=== PATIENT | male | born 1955 | race Caucasian/White ===

== ENCOUNTER 2022-04-08 09:11 | Outpatient (CLI) | payer OTHER, SELFPAY ==
[2022-04-08 16:30] LABS: Chloride* 105 mmol/L (96-114); Potassium* 4.5 mmol/L (3.6-5.1); Sodium* 140 mmol/L (135-149)
[2022-04-08 16:32] LABS: Cholesterol* 209 mg/dL (90-199)
[2022-04-08 16:33] LABS: Blood Urea Nitrogen* 26 mg/dL (7-30); Carbon Dioxide* 28 mmol/L (20-32); Estimated Glomerular Filt Rate 84 ml/min; Glucose* 106 mg/dL (60-115); Triglycerides* 191 mg/dL (40-149)
[2022-04-08 16:34] LABS: HDL Cholesterol* 33 mg/dL (>=40); LDL Cholesterol Calculated 138 mg/dL (<100)
[2022-04-08 17:05] LABS: PSA Screen* 0.98 ng/mL (0.10-4.00)
== END 2022-04-08 09:12 | disposition home or self-care (01) ==
LOC: NFLDREF 10:01
PROVIDERS: PCP Family Medicine; Visit Provider Family Medicine
DX: Z01.818 Encounter for other preprocedural examination (principal); Z12.5 Encounter for screening for malignant neoplasm of prostate; Z13.6 Encounter for screening for cardiovascular disorders
CPT/HCPCS: 80048; 80061; 84153

== ENCOUNTER 2022-04-08 10:12 | Day surgery (SDC) | payer OTHER, SELFPAY ==
[2022-04-08] MEDS: LACTATED RINGERS 1000 ML 1,000 ML 100 ML IV (10:30)
[2022-04-08 10:34] VITALS: BP 135/79; PULSE 54; RESP 16; TEMP 36.7; O2SAT 96
[2022-04-08 10:35] VITALS: BMI 42.7
[2022-04-08] MEDS: SODIUM CHLORIDE 0.9 % (FLUSH) 10 ML SYRINGE IVF (10:47)
[2022-04-08 13:02] VITALS: BP 123/82; PULSE 45; RESP 16; TEMP 36.3; O2SAT 98
--- NOTE | 2022-04-08 13:03 | P.PCN_ITS ---
Procedure Note Date Seen: 04/08/22 Will [facility] bill your pro fee for this procedure?: Yes Procedure Description: SURGEON: Hermila Mcpherson MD PREOPERATIVE DIAGNOSIS: Dermatochalasis, bilateral upper eyelids. POSTOPERATIVE DIAGNOSIS: Dermatochalasis, bilateral upper eyelids. NAME OF OPERATION: Bilateral upper eyelid blepharoplasty. ANESTHESIA: Local monitored anesthesia care. ESTIMATED BLOOD LOSS: Less than 2 cc. COMPLICATIONS: None. IMPLANTS: None. INDICATIONS: The patient is seen today for bilateral upper eyelid blepharoplasty. The patient complains of upper eyelids interfering with vision. I reviewed the visual ashley and facial photographs. Surgery was indicated for functional improvement of vision. The risks, benefits and alternatives were discussed pre-operatively. The risks included pain, infection, bleeding, poor cosmetic result, scarring, asymmetry, need for further treatment including surgery, inability to close lids, dry eyes, decreased vision, loss of vision and loss of eye. The benefits included improvement of symptoms. The alternative was observation and no surgery. All questions were answered to the patient's satisfaction, and the patient elected to proceed with the bilateral upper eyelid blepharoplasty. Informed consent was obtained. PROCEDURE: In a sitting position, the upper eyelid crease was marked with a marking pen, and the pinch technique was used to determine the amount of upper eyelid skin to be excised. A calipers was used to measure for symmetry and to confirm an appropriate amount of remaining skin. The patient was taken to the operating room. 4 cc of anesthetic was injected subcutaneously along the full extent of each upper eyelid. This anesthetic was made with 1:1 of 2% lidocaine with epinephrine and 0.5% bupivacaine. Both eyes were prepped and draped in the usual sterile ophthalmic fashion. The following was performed on both the right and left upper eyelid: A #15 blade was used to incise the skin. Bishops and Marlon scissors were used to excise the skin and orbicularis muscle. Handheld cautery was used to achieve hemostasis. The eyelids were examined for symmetry. The skin was closed with a running 6-0 nylon suture. Erythromycin ointment was applied to the wounds. The patient tolerated the procedure well. DISPOSITION: The patient was sent to the recovery room and discharged to home in stable condition. The patient was given my postoperative instructions handout. The patient was told to ice as directed. The patient will apply erythromycin ophthalmic ointment to the eyelids three times a day until the sutures are removed, then for another three days. The patient will follow up in one week for suture removal or sooner as needed. The patient was instructed to call me or go to the emergency department with any sudden change, including dramatic loss of vision, excessive bleeding, redness or discharge from the incisions, or severe pain in the eye. Surgeon: Hermila Mcpherson MD
--- NOTE | 2022-04-08 13:05 | W.ANESCHARGE ---
Anesthesia Charges Start Date/Time Anesthesia Start Date: 04/08/22 Anesthesia Start Time: 11:50 Stop Date/Time Anesthesia Stop Date: 04/08/22 Anesthesia Stop Time: 13:05 Summary Emergency: No
[2022-04-08 13:15] VITALS: BP 123/81; PULSE 45; RESP 16; O2SAT 97
[2022-04-08 13:30] VITALS: BP 142/85; PULSE 47; RESP 16; O2SAT 97
[2022-04-08 13:45] VITALS: BP 141/82; PULSE 48; RESP 16; O2SAT 97
== END 2022-04-08 13:56 | disposition home or self-care (01) ==
PROVIDERS: PCP Family Medicine; Visit Provider Ophthalmology
PROC: (CPT 15823; principal; 2022-04-08 11:00)
DX: H02.831 Dermatochalasis of right upper eyelid (principal); H02.834 Dermatochalasis of left upper eyelid; H53.8 Other visual disturbances
CPT/HCPCS: 15823; 00142; A9270; J2704; J7120

== ENCOUNTER 2022-09-16 15:04 | Observation (INO) | payer OTHER, SELFPAY ==
[2022-09-16] VITALS (49 sets, daily range): BP systolic 83–136; BP diastolic 60–84; PULSE 53–73; RESP 18–20; TEMP 35.8–36.7; O2SAT 81–100; BMI 40.2; BMI 42.3
--- NOTE | 2022-09-16 | CRLHL7_ITS ---
For Patients: As a result of the Century Cures Act, medical imaging exams and procedure reports are released immediately into your electronic medical record. You may view this report before your referring provider. If you have questions, please contact your health care provider. INDICATION: Fall, hit head. Loss of consciousness for 5 minutes.. TECHNIQUE: CT head without contrast. COMPARISON: None. FINDINGS: CSF spaces: Within normal limits for age. Brain parenchyma and extra-axial spaces: The bhagat-white differentiation is normal. No sign of mass, hemorrhage, or midline shift. No extra-axial fluid collection. Skull base and calvarium: The visualized paranasal sinuses and mastoid air cells demonstrate no acute or significant findings. The visualized orbits are grossly unremarkable. Subgaleal hematoma along the right frontal scalp. Subtle tubular density deep to the skull at this level likely a coursing vessel rather than hemorrhage. Very subtle hairline nondisplaced fracture of the right superior orbital rim (4/19) with small amount of hemorrhage/fluid is identified along the superior orbital margin. (7/; 5/61). IMPRESSION: No acute intracranial hemorrhage identified. Subtle nondisplaced fracture of the right superior orbital rim with small amount of hemorrhage/fluid along the superior orbital margin. Scalp hematoma along the right frontal bone. Consider further evaluation with CT facial bones as clinically indicated. Please note that all CT scans at this facility use dose modulation, iterative reconstruction, and/or weight-based dosing when appropriate to reduce radiation dose to as low as reasonably achievable. Dictated by Rachel Mayer MD @ 09/16/2022 3:33:12 PM (Electronically Signed)
--- NOTE | 2022-09-16 | CRLHL7_ITS ---
For Patients: As a result of the Century Cures Act, medical imaging exams and procedure reports are released immediately into your electronic medical record. You may view this report before your referring provider. If you have questions, please contact your health care provider. INDICATION: Trauma. TECHNIQUE: CT chest, abdomen and pelvis acquired without contrast. COMPARISON: None. FINDINGS: CHEST: Cardiovascular structures: Heart size is normal. main pulmonary artery is normal in caliber. Mild ectasia of the ascending aorta. Mediastinum and keith: No mass or adenopathy. Lungs and pleura: Lungs and pleural spaces are clear. No suspicious nodules, infiltrates, or effusions. Chest wall and axilla: No mass or adenopathy. Bones: No suspicious bone lesions. Unremarkable for age. ABDOMEN AND PELVIS: Liver: Unremarkable. Gallbladder and bile ducts: Unremarkable. Pancreas: Unremarkable. Spleen: Unremarkable. Adrenal glands: Unremarkable. Kidneys: Unremarkable. GI tract: Unremarkable. Vascular structures: Abdominal aorta is normal in caliber. Lymph nodes: Unremarkable. Miscellaneous: Unremarkable. No free air or significant free fluid. Pelvic Organs: Unremarkable. Bones: No suspicious bone lesions. Unremarkable for age. IMPRESSION: No intrathoracic of intra-abdominal traumatic injury identified. Please note that all CT scans at this facility use dose modulation, iterative reconstruction, and/or weight-based dosing when appropriate to reduce radiation dose to as low as reasonably achievable. Dictated by Rachel Mayer MD @ 09/16/2022 3:58:35 PM (Electronically Signed)
--- NOTE | 2022-09-16 | CRLHL7_ITS ---
For Patients: As a result of the Cures Act, medical imaging exams and procedure reports are released immediately into your electronic medical record. You may view this report before your referring provider. If you have questions, please contact your health care provider. INDICATION: Fall, hit head, loss of consciousness.. Neck pain. TECHNIQUE: CT cervical spine without contrast. COMPARISON: None. FINDINGS: Vertebrae: Alignment is normal. There are no fractures or suspicious bony lesions. Discs and facet joints: Disc spaces and facets are within normal limits. Extraspinal findings: Prevertebral soft tissues, visualized airway, and visualized lungs are unremarkable. IMPRESSION: Unremarkable cervical spine CT. Please note that all CT scans at this facility use dose modulation, iterative reconstruction, and/or weight-based dosing when appropriate to reduce radiation dose to as low as reasonably achievable. Dictated by Rachel Mayer MD @ 09/16/2022 3:37:45 PM (Electronically Signed)
--- NOTE | 2022-09-16 15:28 | ED_ITS ---
HPI - Head Injury General Chief complaint: Head Injury/Pain Stated complaint: Fall Time Seen by Provider: 09/16/22 15:09 History of Present Illness HPI Narrative: This 67-year-old male comes in by ambulance for evaluation after a fall that occurred just prior to arrival. He was up about fiber 6 ft off the ground putting oil in a Reg. He fell off hitting his head on asphalt. It is reported that he had loss of consciousness for about 5 minutes. A trauma team activation is initiated. The patient went immediately to CT imaging of his head. While being position for this imaging to occur I did press on his abdomen and chest and he became nauseated and had dry heaving. He did not complain of any pain but he certainly had a reaction when palpating his abdomen. CT imaging of chest abdomen and pelvis was then initiated. After these studies the patient came back to the room and I was able to do further exam. He is not showing any sign of injury to his extremities. He does have a hematoma with some bleeding on the right side of his forehead. He does not have any sign of injury to his extremities and does not complain of any tenderness when pressing on his chest wall or abdomen. He does complain of a headache. Related Data Home Medications Medication Instructions Recorded Confirmed meloxicam 15 mg tablet 15 mg PO QDAY 04/03/22 09/16/22 sertraline 100 mg tablet 100 mg PO QDAY 04/03/22 09/16/22 CPAP inhalation 04/06/22 Allergies Allergy/AdvReac Type Severity Reaction Status Date / Time No Known Drug Allergies Allergy Verified 04/06/22 08:29 Review of Systems Narrative: Constitutional: No fevers, no weight gain or loss. Eyes: No discharge. No vision changes. HENT: No congestion, no sore throat, no ear pain. Headache. Cardiovascular: No chest pain, no palpitations. Respiratory: No shortness of breath, no wheezes, no cough. Gastrointestinal: No abdominal pain, no diarrhea. He reports nausea and vomiting. Genitourinary: No dysuria, no hematuria. Musculoskeletal: Normal range of motion. Skin: No rashes, no pruritis. Neurological: No dizziness, weakness, sensory change, speech change. Endo/Heme/Allergies: No bruising or bleeding. No polydipsia. Pysch: no suicidality, no anxiety, no insomnia. All other systems reviewed and are negative. PFSH PFSH Medical History (Updated 09/16/22 @ 19:15 by Brad Bautista MD) Anxiety (02/22/07) [place] lung (02/22/07) Morbid obesity with body mass index of 40.0-49.9 Obstructive sleep apnea treated with continuous positive airway pressure (CPAP) Osteoarthritis of both wrists Seasonal allergic rhinitis (02/22/07) Vertigo Surgical History (Updated 04/06/22 @ 23:57 by Emory Masters MD) History of carpal tunnel surgery of left wrist History of cataract surgery History of colonoscopy History of detached retina repair History of third molar tooth extraction Family History (Updated 03/23/22 @ 13:50 by Carlos Madison) Brother FH: colonic polyps Throat cancer Uncle Colorectal cancer Mother Stroke Other High blood pressure Social History (Updated 04/06/22 @ 23:53 by Emory Masters MD) Narrative: 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 HEENT: Hematoma on the right forehead with overlying abrasion. No full- thickness injury of the skin in this area. Neck: Normal range of motion. Nontender. Supple. Heart: Regular. No murmurs. Normal rate. Intact distal pulses. Lungs: Clear to auscultation. No chest discomfort. No wheezes, rhonchi, or rales. Abdomen: Normal bowel sounds. Nontender. No rebound tenderness. Genitalia: Deferred. Back: No midline tenderness. Normal range of motion. Extremities: Normal range of motion. No injury. Skin: Intact. No rash. Warm. No erythema or pallor. Neurologic: No altered sensation. No weakness. Alert and oriented. Psychiatric: No suicidality. No anxiety or depression. No insomnia. Nursing notes and vitals signs are reviewed. Const: Vital Signs, click to edit/add: Vital Signs - 24 hr 09/16/22 15:24 09/16/22 15:34 09/16/22 15:35 Temperature 96.4 F L Pulse Rate 64 62 Pulse Rate [Pulse Oximeter] 56 L Respiratory Rate 20 Blood Pressure 112/67 Blood Pressure [Le ft Upper Arm] 110/71 Pulse Oximetry 98 100 99 Oxygen Delivery Me thod Room Air 09/16/22 15:42 09/16/22 15:45 09/16/22 15:52 Temperature Pulse Rate 55 L 56 L 60 Pulse Rate [Pulse Oximeter] Respiratory Rate Blood Pressure 101/62 109/60 Blood Pressure [Le ft Upper Arm] Pulse Oximetry 100 100 98 Oxygen Delivery Me thod 09/16/22 16:00 09/16/22 16:01 09/16/22 16:12 Temperature Pulse Rate 58 L 59 L 53 L Pulse Rate [Pulse Oximeter] Respiratory Rate Blood Pressure 105/65 103/65 Blood Pressure [Le ft Upper Arm] Pulse Oximetry 97 99 97 Oxygen Delivery Me thod 09/16/22 16:15 09/16/22 16:21 09/16/22 16:22 Temperature Pulse Rate 57 L 55 L 55 L Pulse Rate [Pulse Oximeter] Respiratory Rate Blood Pressure 105/66 Blood Pressure [Le ft Upper Arm] Pulse Oximetry 97 97 98 Oxygen Delivery Me thod 09/16/22 16:30 09/16/22 16:32 09/16/22 16:42 Temperature Pulse Rate 53 L 55 L 57 L Pulse Rate [Pulse Oximeter] Respiratory Rate Blood Pressure 107/68 104/74 Blood Pressure [Le ft Upper Arm] Pulse Oximetry 97 94 93 Oxygen Delivery Me thod 09/16/22 16:45 09/16/22 16:52 09/16/22 17:00 Temperature Pulse Rate 58 L 62 67 Pulse Rate [Pulse Oximeter] Respiratory Rate Blood Pressure 102/66 Blood Pressure [Le ft Upper Arm] Pulse Oximetry 94 92 93 Oxygen Delivery Me thod 09/16/22 17:02 09/16/22 17:12 09/16/22 17:27 Temperature 97.5 F L Pulse Rate 64 67 Pulse Rate [Pulse Oximeter] Respiratory Rate Blood Pressure 113/66 113/71 Blood Pressure [Le ft Upper Arm] Pulse Oximetry 96 88 Oxygen Delivery Me thod Course Vital Signs Vital signs: Initial Vital Signs Temperature 96.4 F L 09/16/22 15:24 Temperature Source Temporal Artery Scan 09/16/22 15:24 Pulse Rate 56 L 09/16/22 15:24 Respiratory Rate 20 09/16/22 15:24 Blood Pressure 110/71 09/16/22 15:24 Blood Pressure Mean 84 09/16/22 15:24 Blood Pressure Position Supine 09/16/22 15:24 Pulse Oximetry 98 09/16/22 15:24 Oxygen Delivery Method 09/16/22 15:24 Vital Signs Temperature 96.4 F L 09/16/22 15:24 Pulse Rate 56 L 09/16/22 15:24 Respiratory Rate 20 09/16/22 15:24 Blood Pressure 110/71 09/16/22 15:24 Pulse Oximetry 98 09/16/22 15:24 Oxygen Delivery Method 09/16/22 15:24 Temperature 97.5 F L 09/16/22 17:27 Pulse Rate 67 09/16/22 17:12 Respiratory Rate 20 09/16/22 15:24 Blood Pressure 113/71 09/16/22 17:12 Pulse Oximetry 88 09/16/22 17:12 Oxygen Delivery Method 09/16/22 15:24 MDM - Head Injury MDM Narrative Medical decision making narrative: Primary Survey: Vital Signs are within normal limits. Airway: Open. Breathing: Easy. Circulation: no obvious bleeding; normal capillary refill. Disability: GCS is 15. Normal pupillary response and motor movements. Secondary Survey: Head: Hematoma on the right forehead with overlying abrasion. Neck: No midline tenderness. ROM intact. Chest: Non tender. No external signs of trauma. Abdomen: Non tender. No rebound tenderness. Normal bowel sounds. Pelvis/Genitals: No tenderness to A/P and lateral stress. Extremities: Atraumatic. Back: No midline tenderness. No sign of injury. Primary and Secondary surveys are completed. The patient's GCS is 15. CT imaging of the head returns with evidence of a fracture in the superior orbital rim on the right side. There is no involvement of the sinuses. He does not have any entrapment of his eye musculature. There is no sign of intracranial bleeding. Additionally CT scan of the C-spine, chest, abdomen, and pelvis are unremarkable. The patient received 0.5 mg of Dilaudid and a couple doses of Zofran 4 mg. His main complaint was nausea. He also received a single dose of Ativan 0.5 mg. This brought relief to his symptoms sufficiently. X-ray imaging of his left hand does show evidence of a minimally displaced fracture of the distal 5th metatarsal. I did place this area in a ulnar gutter splint. I spoke with the 3 physicians regarding this patient's injuries. I did contact Dr. Pope, surgeon on-call who recommended that I consult a specialist including and neurosurgeon. At that point her understanding was that this was an open fracture. This injury really is not an open fracture but nevertheless I did speak with Dr. Palumbo at [facility] who stated that he could be observed here and that triggers of worsening condition such as open fracture, frontal sinus involvement, or eye musculature entrapment are not being seen. The patient is okay to go home when he is able to do so. I did speak with Dr. Landa, hospitalist on-call, who agrees to his admission here. Lab Data Labs: Lab Results 09/16/22 09/16/22 09/16/22 Range/Units 15:39 15:39 15:39 WBC 6.89 (4.50-11.00) K/uL RBC 4.35 (4.30-5.90) m/uL Hgb 13.4 L (13.5-17.5) gm/dL Hct 38.6 (37.0-53.0) % MCV 89 (80-100) fL MCH 31 (26-34) pg MCHC 35 (32-36) gm/dL RDW Coeff of Enrique 12.6 (11.5-15.5) % Plt Count 164 (140-440) K/uL Neut % (Auto) 69.2 (42.0-72.0) % Lymph % (Auto) 21.0 (20-44) % [place] % (Auto) 7.5 (0.0-11.0) % Eos % (Auto) 1.6 (0.0-7.0) % Baso % (Auto) 0.4 (0.0-3.0) % Neut # (Auto) 4.76 (1.7-7.0) K/uL Lymph # (Auto) 1.45 (0.90-2.90) K/uL [place] # (Auto) 0.50 (0.00-0.90) K/UL Eos # (Auto) 0.11 (0.00-0.50) K/uL Baso # (Auto) 0.03 (0.00-0.30) K/uL INR 1.00 (0.91-1.10) Sodium 138 (135-149) mmol/L Potassium 3.6 (3.6-5.1) mmol/L Chloride 108 (96-114) mmol/L Carbon Dioxide 23 (20-32) mmol/L BUN 19 (7-30) mg/dL Creatinine 0.9 (0.5-1.5) mg/dL Estimated Creat Clear 76.04 Estimated GFR 95 ml/min Glucose 176 H (60-115) mg/dL Calcium 8.9 (8.4-10.6) mg/dL Total Bilirubin 0.6 (0.1-1.5) mg/dL Direct Bilirubin 0.2 (0.0-0.5) mg/dL AST 29 (12-35) U/L ALT 25 (4-50) U/L Alkaline Phosphatase 52 (40-150) U/L Total Protein 6.7 (6.0-8.3) g/dL Albumin 3.9 (3.3-5.0) g/dL SARS-CoV-2 (PCR) (Negative) 09/16/22 09/16/22 Range/Units 15:39 16:21 WBC (4.50-11.00) K/uL RBC (4.30-5.90) m/uL Hgb (13.5-17.5) gm/dL Hct (37.0-53.0) % MCV (80-100) fL MCH (26-34) pg MCHC (32-36) gm/dL RDW Coeff of Enrique (11.5-15.5) % Plt Count (140-440) K/uL Neut % (Auto) (42.0-72.0) % Lymph % (Auto) (20-44) % [place] % (Auto) (0.0-11.0) % Eos % (Auto) (0.0-7.0) % Baso % (Auto) (0.0-3.0) % Neut # (Auto) (1.7-7.0) K/uL Lymph # (Auto) (0.90-2.90) K/uL [place] # (Auto) (0.00-0.90) K/UL Eos # (Auto) (0.00-0.50) K/uL Baso # (Auto) (0.00-0.30) K/uL INR (0.91-1.10) Sodium (135-149) mmol/L Potassium (3.6-5.1) mmol/L Chloride (96-114) mmol/L Carbon Dioxide (20-32) mmol/L BUN (7-30) mg/dL Creatinine (0.5-1.5) mg/dL Estimated Creat Clear Estimated GFR ml/min Glucose (60-115) mg/dL Calcium (8.4-10.6) mg/dL Total Bilirubin Cancelled (0.1-1.5) mg/dL Direct Bilirubin Cancelled (0.0-0.5) mg/dL AST Cancelled (12-35) U/L ALT Cancelled (4-50) U/L Alkaline Phosphatase Cancelled (40-150) U/L Total Protein Cancelled (6.0-8.3) g/dL Albumin Cancelled (3.3-5.0) g/dL SARS-CoV-2 (PCR) Negative SARS-CoV-2 (Negative) Imaging Data CT scan - head: Radiologist's impression: No acute intracranial hemorrhage identified. Subtle nondisplaced fracture of the right superior orbital rim with small amount of hemorrhage/fluid along the superior orbital margin. Scalp hematoma along the right frontal bone. Consider further evaluation with CT facial bones as clinically indicated. CT Cervical Spine: Radiologist's impression: Unremarkable cervical spine CT. CT Chest/Ab/Pelvis: Attestation: I have reviewed the pertinent imaging results. Radiologist's impression: No intrathoracic of intra-abdominal traumatic injury identified. XR L Hand: Radiologist's impression: Bones: There is a fracture at the neck of the 5th metacarpal without significant distraction or displacement. Joint spaces: No dislocation. Advanced osteoarthritis at the 1st carpometacarpal joint with joint space narrowing and marginal osteophytes. Soft tissues: Mild soft tissue swelling. Intravenous line at the dorsal aspect of the hand. Critical Care Time Critical Care Time Critical Care Time: Yes Attestation: The patient required my highest level preparedness to intervene emergently and I personally spent this critical care time directly and personally managing the patient. This critical care time included: Obtaining a history; Examining the patient; Pulse oximetry; Ordering and reviewing of studies; Arranging urgent treatment with development of a management plan; Evaluation of patients response to treatment; Frequent reassessment discussions with other providers. This critical care time was performed to assess and manage the high probability of imminent life-threatening deterioration that could result in multiorgan failure. It was exclusive of separate billable procedures and treating other patients and teaching time. Total Critical Care Time in Minutes: 30 Discharge Plan Discharge Clinical Impression: Concussion, Skull fracture, Fracture of hand Patient Disposition: Admitted As Inpatient Condition: Unchanged Prescriptions: No Action sertraline 100 mg tablet 100 mg PO QDAY Label Comments: TAKE 1 TABLET BY MOUTH ONCE DAILY. meloxicam 15 mg tablet 15 mg PO QDAY Label Comments: TAKE 1 TABLET BY MOUTH ONCE DAILY. CPAP inhalation Follow Up/Referrals: Emory Masters MD [Primary Care Provider] -
[2022-09-16] MEDS: HYDROmorphone 0.5 mg/0.5 ml inj IVP (15:48)
--- NOTE | 2022-09-16 15:50 | CRLHL7_ITS ---
For Patients: As a result of the Cures Act, medical imaging exams and procedure reports are released immediately into your electronic medical record. You may view this report before your referring provider. If you have questions, please contact your health care provider. Indication: Injury Technique: Three views Comparison: None Findings: Bones: There is a fracture at the neck of the 5th metacarpal without significant distraction or displacement. Joint spaces: No dislocation. Advanced osteoarthritis at the 1st carpometacarpal joint with joint space narrowing and marginal osteophytes. Soft tissues: Mild soft tissue swelling. Intravenous line at the dorsal aspect of the hand. Dictated by River Sawant MD @ 09/16/2022 4:48:05 PM (Electronically Signed)
[2022-09-16 15:58] LABS: Basophils Absolute Auto 0.03 K/uL (0.00-0.30); Basophils Percent Auto 0.4 % (0.0-3.0); Eosinophils Absolute Auto 0.11 K/uL (0.00-0.50); Eosinophils Percent Auto 1.6 % (0.0-7.0); Hematocrit 38.6 % (37.0-53.0); Hemoglobin* 13.4 gm/dL (13.5-17.5); Immature Granulocytes Abs Auto 0.02 K/uL (0.00-0.30); Immature Granulocytes Pct Auto 0.3 %; Lymphocytes Absolute Auto 1.45 K/uL (0.90-2.90); Mean Corpuscular HGB Conc 35 gm/dL (32-36); Mean Corpuscular Hemoglobin 31 pg (26-34); Mean Corpuscular Volume 89 fL (80-100); Monocytes Percent Auto 7.5 % (0.0-11.0); Neutrophils Absolute Auto 4.76 K/uL (1.7-7.0); Neutrophils Percent Auto 69.2 % (42.0-72.0); Platelet Count* 164 K/uL (140-440); RDW Coefficient of Variation % 12.6 % (11.5-15.5); Red Blood Count 4.35 m/uL (4.30-5.90); White Blood Count* 6.89 K/uL (4.50-11.00)
[2022-09-16 16:05] LABS: Slide Review Reflex No
[2022-09-16 16:06] LABS: Albumin* 3.9 g/dL (3.3-5.0); Chloride* 108 mmol/L (96-114); Sodium* 138 mmol/L (135-149)
[2022-09-16 16:07] LABS: Potassium* 3.6 mmol/L (3.6-5.1)
[2022-09-16 16:09] LABS: Alkaline Phosphatase* 52 U/L (40-150); Aspartate Amino Transferase* 29 U/L (12-35); Bilirubin Direct* 0.2 mg/dL (0.0-0.5); Bilirubin Total* 0.6 mg/dL (0.1-1.5); Blood Urea Nitrogen* 19 mg/dL (7-30); Carbon Dioxide* 23 mmol/L (20-32); Creatinine* 0.9 mg/dL (0.5-1.5); Est. Creatinine Clearance* 76.04; Estimated Glomerular Filt Rate 95 ml/min; Total Protein* 6.7 g/dL (6.0-8.3)
[2022-09-16 16:10] LABS: Alanine Aminotransferase* 25 U/L (4-50); Calcium* 8.9 mg/dL (8.4-10.6); Glucose* 176 mg/dL (60-115)
[2022-09-16 16:27] LABS: Prothrombin Time 13.8 Seconds
[2022-09-16] MEDS: ONDANSETRON 2 MG/ML inj 4 MG IVP (16:59)
[2022-09-16] MEDS: 0.9 % SODIUM CHLORIDE 500 ML 500 ML IV (17:20)
[2022-09-16] MEDS: LORazepam 2 MG/ML inj 0.5 MG IV (18:20)
[2022-09-16 18:43] LABS: SARS PCR* Negative SARS-CoV-2 (Negative)
[2022-09-16 21:28] LABS: Hemoglobin A1C* 5.73 % (0-5.6)
--- NOTE | 2022-09-16 21:30 | PM.IMHP1 ---
Hospitalist- H&P: HPI History of Present Illness Time Seen by Provider: 20:45 Date Seen: 09/16/22 Chief complaint: Fall Narrative: Nicholas Palacios is a 67 year old male who was in his usual state of health when he fell off a semi trailer and hit his head on concrete with 5 minutes loss of consciousness. He is not on blood thinner. 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 His son did not see the fall but noticed that keep was not up on the trailer anymore, came around the corner to find Nicholas on the ground on his side unconscious. He was throwing up white frothy emesis. Nicholas was unconscious for about 5 minutes total. Nicholas does not remember falling. He had vertigo 1 year ago and fell off a ladder at that time, but has not had any of those symptoms since. He has not had any cardiac symptoms or dizziness lately. Since hitting his head this evening, he feels vertiginous whenever he moves his head or body. He has had occasional emesis which coincides with movement. He does have some right chest wall pain from the fall. Also of note is that he slipped on the ice earlier today and bumped his right elbow on the ground. He did not hit his head and had no loss of consciousness at that time. Dr. Lopez spoke with Dr. Smith from neuro surgery who thought this patient could go home or be admitted for observation and did not need any further imaging unless something were to change. Review of Systems Status of ROS: Reports: 10 or more systems reviewed and unremarkable except as noted in History and below [facility] Medical History (Updated 09/16/22 @ 21:43 by Narda Landa MD) Anxiety (02/22/07) [place] lung (02/22/07) Morbid obesity with body mass index of 40.0-49.9 Obstructive sleep apnea treated with continuous positive airway pressure (CPAP) Osteoarthritis of both wrists Seasonal allergic rhinitis (02/22/07) Vertigo Surgical History History of carpal tunnel surgery of left wrist History of cataract surgery History of colonoscopy History of detached retina repair History of third molar tooth extraction Family History Brother FH: colonic polyps Throat cancer Uncle Colorectal cancer Mother Stroke Other High blood pressure Social History (Updated 09/16/22 @ 21:36 by Narda Landa MD) Narrative: 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, 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, Consumes alcohol occasionally, 4 per month Does not use illicit drugs Non-smoker FULL CODE Highest level of school completed/degree received: Associate degree: occupational, technical, vocational program Smoking Status: Never smoker How often do you have a drink containing alcohol: never AUDIT-C Alcohol total score: 0 Non-prescribed substance use: denies use Caffeine: Yes Little interest or pleasure in doing things: not at all Feeling down, depressed, or hopeless: not at all service: No Meds Home Medications and Allergies Home Medications Medication Instructions Recorded Confirmed Type meloxicam 15 mg tablet 15 mg PO QDAY 04/03/22 09/16/22 History sertraline 100 mg tablet 100 mg PO QDAY 04/03/22 09/16/22 History CPAP inhalation 04/06/22 History Allergies Allergy/AdvReac Type Severity Reaction Status Date / Time No Known Drug Allergies Allergy Verified 04/06/22 08:29 Exam Narrative: Exam Narrative: General: Vertiginous especially with movement. Emesis with movement. Awake alert oriented x3. Speech is normal. Joking. HEENT: Right forehead abrasions noted, hemostatic. Right eyelid edema and hematoma, extraocular eye movements intact. Both horizontal and vertical nystagmus are present. Left pupil is round and intact, responsive to light and accommodation. Right pupil is chronically fixed and 3 mm diameter. Oropharynx clear. Mucous membranes are moist. No cervical lymphadenopathy, thyromegaly or carotid bruits. No JVD. Cardiovascular: Regular rate and rhythm. No murmurs, gallops, or rubs. Chest: No increased work of breathing. Clear to auscultation bilaterally. No crackles or wheezes. Bruises over the chest wall. Abdomen: Bowel sounds present. Soft, nondistended, nontender. No hepatosplenomegaly or masses. Extremities: Left forearm and hand are in a gutter splint with Shahab wraps. Small dime-sized abrasion on his right knee. No edema, no cyanosis or clubbing. Skin: As above. No jaundice, no pallor. Neuro: There are no focal deficits. Cranial nerves 2-12 are intact. He has hearing aids in and his hearing is intact. Extraocular movements are full. Horizontal and vertical nystagmus are present. No facial asymmetry other than soft tissue injury around the right forehead and right eyelids. Tongue is midline. Peripheral vision and vision are grossly intact. Strength is 5/5 in all 4 extremities. Light touch sensation is intact in face body and extremities. Const: Vital Signs, click to edit/add: Vital Signs - 24 hr 09/16/22 15:24 09/16/22 15:34 09/16/22 15:35 Temperature 96.4 F L Pulse Rate 64 62 Pulse Rate [Pulse Oximeter] 56 L Respiratory Rate 20 Blood Pressure 112/67 Blood Pressure [Le ft Arm] Blood Pressure [Le ft Upper Arm] 110/71 Pulse Oximetry 98 100 99 Oxygen Delivery Me thod Room Air Oxygen Flow Rate 09/16/22 15:42 09/16/22 15:45 09/16/22 15:52 Temperature Pulse Rate 55 L 56 L 60 Pulse Rate [Pulse Oximeter] Respiratory Rate Blood Pressure 101/62 109/60 Blood Pressure [Le ft Arm] Blood Pressure [Le ft Upper Arm] Pulse Oximetry 100 100 98 Oxygen Delivery Me thod Oxygen Flow Rate 09/16/22 16:00 09/16/22 16:01 09/16/22 16:12 Temperature Pulse Rate 58 L 59 L 53 L Pulse Rate [Pulse Oximeter] Respiratory Rate Blood Pressure 105/65 103/65 Blood Pressure [Le ft Arm] Blood Pressure [Le ft Upper Arm] Pulse Oximetry 97 99 97 Oxygen Delivery Me thod Oxygen Flow Rate 09/16/22 16:15 09/16/22 16:21 09/16/22 16:22 Temperature Pulse Rate 57 L 55 L 55 L Pulse Rate [Pulse Oximeter] Respiratory Rate Blood Pressure 105/66 Blood Pressure [Le ft Arm] Blood Pressure [Le ft Upper Arm] Pulse Oximetry 97 97 98 Oxygen Delivery Me thod Oxygen Flow Rate 09/16/22 16:30 09/16/22 16:32 09/16/22 16:42 Temperature Pulse Rate 53 L 55 L 57 L Pulse Rate [Pulse Oximeter] Respiratory Rate Blood Pressure 107/68 104/74 Blood Pressure [Le ft Arm] Blood Pressure [Le ft Upper Arm] Pulse Oximetry 97 94 93 Oxygen Delivery Me thod Oxygen Flow Rate 09/16/22 16:45 09/16/22 16:52 09/16/22 17:00 Temperature Pulse Rate 58 L 62 67 Pulse Rate [Pulse Oximeter] Respiratory Rate Blood Pressure 102/66 Blood Pressure [Le ft Arm] Blood Pressure [Le ft Upper Arm] Pulse Oximetry 94 92 93 Oxygen Delivery Me thod Oxygen Flow Rate 09/16/22 17:02 09/16/22 17:12 09/16/22 17:27 Temperature 97.5 F L Pulse Rate 64 67 Pulse Rate [Pulse Oximeter] Respiratory Rate Blood Pressure 113/66 113/71 Blood Pressure [Le ft Arm] Blood Pressure [Le ft Upper Arm] Pulse Oximetry 96 88 Oxygen Delivery Me thod Oxygen Flow Rate 09/16/22 17:38 09/16/22 17:13 09/16/22 17:15 Temperature Pulse Rate 64 67 Pulse Rate [Pulse Oximeter] Respiratory Rate Blood Pressure Blood Pressure [Le ft Arm] Blood Pressure [Le ft Upper Arm] Pulse Oximetry 95 95 92 Oxygen Delivery Me thod Nasal Cannula Oxygen Flow Rate 2 09/16/22 17:21 09/16/22 17:30 09/16/22 17:32 Temperature Pulse Rate 68 64 60 Pulse Rate [Pulse Oximeter] Respiratory Rate Blood Pressure 120/70 120/75 Blood Pressure [Le ft Arm] Blood Pressure [Le ft Upper Arm] Pulse Oximetry 81 L 94 97 Oxygen Delivery Me thod Oxygen Flow Rate 09/16/22 17:42 09/16/22 17:44 09/16/22 17:45 Temperature Pulse Rate 54 L 59 L 58 L Pulse Rate [Pulse Oximeter] Respiratory Rate Blood Pressure 83/65 L 109/62 Blood Pressure [Le ft Arm] Blood Pressure [Le ft Upper Arm] Pulse Oximetry 99 98 99 Oxygen Delivery Me thod Oxygen Flow Rate 09/16/22 17:51 09/16/22 18:00 09/16/22 18:01 Temperature Pulse Rate 59 L 58 L 61 Pulse Rate [Pulse Oximeter] Respiratory Rate Blood Pressure 107/63 115/75 Blood Pressure [Le ft Arm] Blood Pressure [Le ft Upper Arm] Pulse Oximetry 98 98 98 Oxygen Delivery Me thod Oxygen Flow Rate 09/16/22 18:12 09/16/22 18:15 09/16/22 18:21 Temperature Pulse Rate 62 66 69 Pulse Rate [Pulse Oximeter] Respiratory Rate Blood Pressure 117/71 118/71 Blood Pressure [Le ft Arm] Blood Pressure [Le ft Upper Arm] Pulse Oximetry 95 94 95 Oxygen Delivery Me thod Oxygen Flow Rate 09/16/22 18:30 09/16/22 18:31 09/16/22 18:41 Temperature Pulse Rate 72 72 73 Pulse Rate [Pulse Oximeter] Respiratory Rate Blood Pressure 117/71 120/75 Blood Pressure [Le ft Arm] Blood Pressure [Le ft Upper Arm] Pulse Oximetry 96 96 93 Oxygen Delivery Me thod Oxygen Flow Rate 09/16/22 18:45 09/16/22 18:51 09/16/22 19:00 Temperature Pulse Rate 71 69 71 Pulse Rate [Pulse Oximeter] Respiratory Rate Blood Pressure 121/74 Blood Pressure [Le ft Arm] Blood Pressure [Le ft Upper Arm] Pulse Oximetry 94 93 94 Oxygen Delivery Me thod Oxygen Flow Rate 09/16/22 19:01 09/16/22 19:14 09/16/22 19:15 Temperature Pulse Rate 71 68 66 Pulse Rate [Pulse Oximeter] Respiratory Rate Blood Pressure 120/78 130/84 Blood Pressure [Le ft Arm] Blood Pressure [Le ft Upper Arm] Pulse Oximetry 92 95 97 Oxygen Delivery Me thod Oxygen Flow Rate 09/16/22 20:12 Temperature 98 F Pulse Rate Pulse Rate [Pulse Oximeter] 72 Respiratory Rate 18 Blood Pressure Blood Pressure [Le ft Arm] 136/78 Blood Pressure [Le ft Upper Arm] Pulse Oximetry 97 Oxygen Delivery Me thod Nasal Cannula Oxygen Flow Rate 2 Hospitalist - H&P: Result Labs Labs: Short CBC 09/16/22 Range/Units 15:39 WBC 6.89 (4.50-11.00) K/uL Hgb 13.4 L (13.5-17.5) gm/dL Hct 38.6 (37.0-53.0) % Plt Count 164 (140-440) K/uL BMP 09/16/22 15:39 Sodium 138 Potassium 3.6 Chloride 108 Carbon Dioxide 23 BUN 19 Creatinine 0.9 Glucose 176 H Calcium 8.9 Liver Function 09/16/22 09/16/22 Range/Units 15:39 15:39 Total Bilirubin 0.6 Cancelled (0.1-1.5) mg/dL Direct Bilirubin 0.2 Cancelled (0.0-0.5) mg/dL AST 29 Cancelled (12-35) U/L ALT 25 Cancelled (4-50) U/L Alkaline Phosphatase 52 Cancelled (40-150) U/L Albumin 3.9 Cancelled (3.3-5.0) g/dL 09/16/2022 3:34 p.m. EKG: Normal sinus rhythm. 62 beats per minute. Nonspecific ST abnormality. Ordering Physician: Brad Bautista M.D. Date of Service: 09/16/22 Procedure(s): CT cervical spine wo con Accession Number(s): [id number] cc: Brad Bautista M.D.; Emory Masters M.D.~ For Patients: As a result of the Cures Act, medical imaging exams and procedure reports are released immediately into your electronic medical record. You may view this report before your referring provider. If you have questions, please contact your health care provider. INDICATION: Fall, hit head, loss of consciousness.. Neck pain. TECHNIQUE: CT cervical spine without contrast. COMPARISON: None. FINDINGS: Vertebrae: Alignment is normal. There are no fractures or suspicious bony lesions. Discs and facet joints: Disc spaces and facets are within normal limits. Extraspinal findings: Prevertebral soft tissues, visualized airway, and visualized lungs are unremarkable. IMPRESSION: Unremarkable cervical spine CT. Please note that all CT scans at this facility use dose modulation, iterative reconstruction, and/or weight-based dosing when appropriate to reduce radiation dose to as low as reasonably achievable. Dictated by Rachel Mayer MD @ 09/16/2022 3:37:45 PM (Electronically Signed) Ordering Physician: Brad Bautista M.D. Date of Service: 09/16/22 Procedure(s): CT chest abdomen pelv wo con Accession Number(s): [id number] cc: Brad Bautista M.D.; Emory Masters M.D.~ For Patients: As a result of the Cures Act, medical imaging exams and procedure reports are released immediately into your electronic medical record. You may view this report before your referring provider. If you have questions, please contact your health care provider. INDICATION: Trauma. TECHNIQUE: CT chest, abdomen and pelvis acquired without contrast. COMPARISON: None. FINDINGS: CHEST: Cardiovascular structures: Heart size is normal. main pulmonary artery is normal in caliber. Mild ectasia of the ascending aorta. Mediastinum and keith: No mass or adenopathy. Lungs and pleura: Lungs and pleural spaces are clear. No suspicious nodules, infiltrates, or effusions. Chest wall and axilla: No mass or adenopathy. Bones: No suspicious bone lesions. Unremarkable for age. ABDOMEN AND PELVIS: Liver: Unremarkable. Gallbladder and bile ducts: Unremarkable. Pancreas: Unremarkable. Spleen: Unremarkable. Adrenal glands: Unremarkable. Kidneys: Unremarkable. GI tract: Unremarkable. Vascular structures: Abdominal aorta is normal in caliber. Lymph nodes: Unremarkable. Miscellaneous: Unremarkable. No free air or significant free fluid. Pelvic Organs: Unremarkable. Bones: No suspicious bone lesions. Unremarkable for age. IMPRESSION: No intrathoracic of intra-abdominal traumatic injury identified. Please note that all CT scans at this facility use dose modulation, iterative reconstruction, and/or weight-based dosing when appropriate to reduce radiation dose to as low as reasonably achievable. Dictated by Rachel Mayer MD @ 09/16/2022 3:58:35 PM (Electronically Signed) Ordering Physician: Brad Bautista M.D. Date of Service: 09/16/22 Procedure(s): CT head/brain wo con Accession Number(s): [id number] cc: Brad Bautista M.D.; Emory Masters M.D.~ For Patients: As a result of the Cures Act, medical imaging exams and procedure reports are released immediately into your electronic medical record. You may view this report before your referring provider. If you have questions, please contact your health care provider. INDICATION: Fall, hit head. Loss of consciousness for 5 minutes.. TECHNIQUE: CT head without contrast. COMPARISON: None. FINDINGS: CSF spaces: Within normal limits for age. Brain parenchyma and extra-axial spaces: The bhagat-white differentiation is normal. No sign of mass, hemorrhage, or midline shift. No extra-axial fluid collection. Skull base and calvarium: The visualized paranasal sinuses and mastoid air cells demonstrate no acute or significant findings. The visualized orbits are grossly unremarkable. Subgaleal hematoma along the right frontal scalp. Subtle tubular density deep to the skull at this level likely a coursing vessel rather than hemorrhage. Very subtle hairline nondisplaced fracture of the right superior orbital rim (4/19) with small amount of hemorrhage/fluid is identified along the superior orbital margin. (03/16; 561). IMPRESSION: No acute intracranial hemorrhage identified. Subtle nondisplaced fracture of the right superior orbital rim with small amount of hemorrhage/fluid along the superior orbital margin. Scalp hematoma along the right frontal bone. Consider further evaluation with CT facial bones as clinically indicated. Please note that all CT scans at this facility use dose modulation, iterative reconstruction, and/or weight-based dosing when appropriate to reduce radiation dose to as low as reasonably achievable. Dictated by Rachel Mayer MD @ 09/16/2022 3:33:12 PM (Electronically Signed) Ordering Physician: Brad Bautista M.D. Date of Service: 09/16/22 Procedure(s): XR hand LT min 3V Accession Number(s): [id number] cc: Brad Bautista M.D.; Emory Masters M.D.~ For Patients: As a result of the Cures Act, medical imaging exams and procedure reports are released immediately into your electronic medical record. You may view this report before your referring provider. If you have questions, please contact your health care provider. Indication: Injury Technique: Three views Comparison: None Findings: Bones: There is a fracture at the neck of the 5th metacarpal without significant distraction or displacement. Joint spaces: No dislocation. Advanced osteoarthritis at the 1st carpometacarpal joint with joint space narrowing and marginal osteophytes. Soft tissues: Mild soft tissue swelling. Intravenous line at the dorsal aspect of the hand. Dictated by River Sawant MD @ 09/16/2022 4:48:05 PM (Electronically Signed) Assessment and Plan Assessment and plan (1) Concussion: Status: Acute (2) Skull fracture: Status: Acute (3) Fracture of hand: Problem comment: Left 5th metacarpal Status: Acute (4) Obstructive sleep apnea treated with continuous positive airway pressure (CPAP): Status: Chronic (5) Morbid obesity with body mass index of 40.0-49.9: Status: Chronic (6) [place] lung: Status: Chronic (7) Anxiety: Status: Chronic (8) Vertigo: Status: Acute Plan 67-year-old male who fell off a semi trailer and sustained injuries to his right forehead and eyelids as well as left 5th metacarpal. He and his have a good friend who had a subdural hemorrhage after hitting his head and did not go well. He is quite anxious that he will have 1 as well. They both desire for him to have a repeat CT head in the morning. I think this is reasonable. I will order neuro checks along with pupil checks q.4 hours. I think he would be best to keep his head of the bed elevated overnight as well. Due to emesis from vertigo I will keep him NPO, give him Zofran, and give IV fluids for maintenance. Will continue Zoloft but not meloxicam. Will use IV Dilaudid for pain control as I do not think he will be able to take oral pain pills due to emesis. If emesis does not improve with Zofran, we could try meclizine. It is not known why he fell. Not having any cardiac symptoms. I have reviewed his EKG, results above. Will start him on telemetry. Continue gutter splint for left 5th metacarpal fracture. Also for elevated glucose I will order a hemoglobin A1c. Patient has had nothing to eat since breakfast.
[2022-09-16] MEDS: LACTATED RINGERS 1000 ML 1,000 ML 75 ML IV (22:37)
[2022-09-17] VITALS (8 sets, daily range): BP systolic 112–148; BP diastolic 61–93; PULSE 57–69; RESP 16–20; TEMP 36.8–37.2; O2SAT 92–94
--- NOTE | 2022-09-17 06:00 | CT_ITS ---
Patient: [facility] Facility:?[facility] Patient ID:?[id number] Site Patient ID:?[id number]. Site :?[id number] Study:?CT-Head w/o Contrast-09/17/2022 6:52:42 AM Ordering Physician:?UNKNOWN UNKNOWN Final Report: INDICATION: follow up right forehead trauma from fall TECHNIQUE: CT head without contrast. COMPARISON: February 14, 2023 FINDINGS: CSF spaces: Within normal limits for age. Brain parenchyma and extra-axial spaces: The bhagat-white differentiation is normal. No sign of intracranial hemorrhage, or midline shift. No extra-axial fluid collection. Skull base and calvarium: The visualized paranasal sinuses and mastoid air cells demonstrate no acute or significant findings. The visualized orbits are grossly unremarkable. Redemonstrated is a subtle nondisplaced fracture of the right superior orbital rim and likely anterior maxillary wall. Decreased conspicuity of associated superior orbital extraconal minimal inflammation/blood. Decreased conspicuity of right frontal scalp contusion/hematoma. Moderate mucosal retention cyst within the right maxillary sinus. IMPRESSION: Redemonstrated is a subtle nondisplaced fracture of the right superior orbital rim and likely anterior maxillary wall. Decreased conspicuity of associated superior orbital extraconal minimal inflammation/blood. Decreased conspicuity of right frontal scalp contusion/hematoma. No evidence of acute intracranial hemorrhage. Please note that all CT scans at this facility use dose modulation, iterative reconstruction, and/or weight-based dosing when appropriate to reduce radiation dose to as low as reasonably achievable. Dictated by Cain Corbin MD @ 09/17/2022 7:39:38 AM Signed by:?Cain Corbin MD @09/17/2022 7:39:38 AM (Electronic Signature)
[2022-09-17] MEDS: ONDANSETRON 2 MG/ML inj 4 MG IVP ×4 (06:15→19:08)
--- NOTE | 2022-09-17 07:30 | PC.NURSE ---
Status Pt admitted around 1999 from ER into 280 with closed head injury. Alert and oriented. Hematoma to right forehead and bruising around right eye. Reports dull headache, ice applied. Q4H neuro checks. Pt and report chronic unequal pupils- right pupil 3mm fixed, left pupil 2mm reactive. Other neuros intact. Left arm in splint d/t 5th digit fracture. BP stable. Telemetry monitoring, NSR. Requiring 2L NC overnight, pt has sleep apnea and wears CPAP at home. LR at 75mL/hr. NPO. Pt has remained in bed d/t vertigo and nausea. Plan for repeat head CT this AM. PRN zofran given before going to CT d/t emesis. Pt reports minimal resting.
[2022-09-17] MEDS: SERTRALINE 100 MG TABLET PO (08:44)
[2022-09-17] MEDS: polyethylene glycoL 3350 17 GM PACK PO (08:44)
[2022-09-17] MEDS: SENNOSIDES/DOCUSATE TABLET 1 TAB PO (08:44)
[2022-09-17] MEDS: LACTATED RINGERS 1000 ML 1,000 ML 75 ML IV ×2 (10:53→22:18)
--- NOTE | 2022-09-17 14:26 | PC.NURSE ---
Addendum entered by Marine Escobar RN 09/17/22 14:34: Pt has had 2 episodes of emesis through out shift. anti nausea medication given as ordered. See EMAR. Pt has not complained of pain. Original Note: Pt was calm and cooperative during shift. Pt spent day in bed besides working with therapy. Pt declined sitting up in chair due to nausea. Pt was changed from NPO to reg diet. Encouraged Pt to drink and try to eat. Pt has not eaten through out day and has had limited oral intake. Pt Assist of 1 with walker.
--- NOTE | 2022-09-17 18:22 | P.IMPN_ITS ---
Progress Note: A&P Assessment and plan (1) Concussion: Problem details: Severe concussion symptoms persist. Continue inpatient and until he is able to eat and walk Status: Acute (2) Vertigo: Problem details: Likely a sequelae of the concussion. Does have a history of traumatic vertigo a year ago as well Status: Acute (3) Skull fracture: Problem details: Symptomatic treatment. No intervention required Status: Acute (4) Fracture of hand: Problem details: Left 5th metacarpal. Should heal with appropriate splinting. Outpatient follow-up Status: Acute (5) Obstructive sleep apnea treated with continuous positive airway pressure (CPAP): Problem details: Needing CPAP when he is sleeping especially with opioid therapy. will bring it in. Status: Chronic (6) Morbid obesity with body mass index of 40.0-49.9: Status: Chronic Plan Continue in hospital until patient is able to maintain nutrition and hydration by mouth and able to walk with a walker. Discussed in some detail with patient and his concussion and expected recovery. Will certainly need outpatient therapy to help with this. Time Spent With Patient Total time spent: Total time spent today is 45 minutes, 35 minutes in coordination of care and discussing with patient and and other providers management of concussion Subjective Date Seen: 09/17/22 Interval history: 67-year-old male seen in followup of head injury. He was climbing on his semi truck when he fell and hit his head. His son was around the vehicle from him. He did not witness the fall but shortly after saw him lying on the ground and vomiting. Patient was feeling well prior to this. He did sustain a nondisplaced 5th metacarpal fracture which has been splinted. CT of the head showed a skull fracture with minimal blood. Repeat CT showed possible improvement in the minimal blood. Neurosurgery was consulted and felt no neurosurgical intervention was required. Patient is continued to have evidence of fairly severe concussion. He has vertigo with head movement. He reports significant imbalance. He has a lot of nausea and vomiting. He has got a headache but it has improved. Exam Narrative: Exam Narrative: He he is alert and able to give his own history. He has amnesia for events following his head injury. He is seen with his today. Head is notable for bruising and slight superficial abrasion over the right protestant and parietal scalp. No other obvious trauma. Oropharynx with small airway. Eyes are without nystagmus. Extraocular movements are full. Visual ashley are intact. Pupils are equal round reactive to light. No facial asymmetry. Neck is supple with minimal discomfort with range of motion. Respirations are clear to auscultation. Cardiovascular: S1, S2, regular rate and rhythm. No murmur gallop or rub. Abdomen: Bowel sounds active. Abdomen is soft without tenderness or mass. Extremities with good perfusion and pulses and sensation. Left upper extremity is splinted. He is observed to stand but has reports of significant vertigo and unsteadiness. During the day today he has had minimal p.o. intake due to nausea and vomiting. He has required scheduled every 4 hour doses of Zofran to help with his nausea. Continuing on IV fluids. Const: Vital Signs, click to edit/add: Vital Signs - 24 hr 09/16/22 18:30 09/16/22 18:31 09/16/22 18:41 Temperature Pulse Rate 72 72 73 Pulse Rate [Pulse Oximeter] Respiratory Rate Blood Pressure 117/71 120/75 Blood Pressure [Le ft Arm] Blood Pressure [Ri ght Arm] Pulse Oximetry 96 96 93 Oxygen Delivery Me thod Oxygen Flow Rate 09/16/22 18:45 09/16/22 18:51 09/16/22 19:00 Temperature Pulse Rate 71 69 71 Pulse Rate [Pulse Oximeter] Respiratory Rate Blood Pressure 121/74 Blood Pressure [Le ft Arm] Blood Pressure [Ri ght Arm] Pulse Oximetry 94 93 94 Oxygen Delivery Me thod Oxygen Flow Rate 09/16/22 19:01 09/16/22 19:14 09/16/22 19:15 Temperature Pulse Rate 71 68 66 Pulse Rate [Pulse Oximeter] Respiratory Rate Blood Pressure 120/78 130/84 Blood Pressure [Le ft Arm] Blood Pressure [Ri ght Arm] Pulse Oximetry 92 95 97 Oxygen Delivery Me thod Oxygen Flow Rate 09/16/22 20:12 09/16/22 21:21 09/16/22 21:18 Temperature 98 F Pulse Rate 67 Pulse Rate [Pulse Oximeter] 72 Respiratory Rate 18 Blood Pressure Blood Pressure [Le ft Arm] 136/78 Blood Pressure [Ri ght Arm] Pulse Oximetry 97 94 Oxygen Delivery Me thod Nasal Cannula Oxygen Flow Rate 2 09/16/22 23:00 09/17/22 03:30 09/17/22 08:08 Temperature 98.1 F 98.3 F Pulse Rate 61 Pulse Rate [Pulse Oximeter] 71 69 Respiratory Rate 18 18 Blood Pressure Blood Pressure [Le ft Arm] 119/74 112/61 Blood Pressure [Ri ght Arm] Pulse Oximetry 95 94 Oxygen Delivery Me thod Nasal Cannula Nasal Cannula Oxygen Flow Rate 2 2 09/17/22 07:56 09/17/22 07:30 09/17/22 11:00 Temperature 98.8 F 98.3 F Pulse Rate Pulse Rate [Pulse Oximeter] 67 67 57 L Respiratory Rate 20 18 Blood Pressure Blood Pressure [Le ft Arm] 118/65 118/65 Blood Pressure [Ri ght Arm] Pulse Oximetry 94 93 Oxygen Delivery Me thod Room Air Room Air Oxygen Flow Rate 09/17/22 15:00 09/17/22 15:00 09/17/22 15:00 Temperature 98.5 F Pulse Rate 57 L Pulse Rate [Pulse Oximeter] 58 L 58 L Respiratory Rate 18 18 Blood Pressure Blood Pressure [Le ft Arm] Blood Pressure [Ri ght Arm] 129/77 Pulse Oximetry 93 Oxygen Delivery Me thod Room Air Oxygen Flow Rate Documenting provider has reviewed patient's vital signs: yes Labs Labs: Laboratory Results - last 24 hr 09/16/22 09/16/22 15:39 16:21 Hemoglobin A1c 5.73 H SARS-CoV-2 (PCR) Negative SARS-CoV-2
[2022-09-17] MEDS: OXYCODONE 5 MG TABLET PO (21:02)
--- NOTE | 2022-09-17 22:42 | PC.NURSE ---
End of Shift: Patient pleasant and cooperative. Temp max 99.0. Rating pain in left hand and headache /10. PRN Oxycodone x1. Up to bathroom with SBA. PRN Zofran x1 for nausea, no emesis this shift. Able to tolerate toast and soup.
[2022-09-18] VITALS (7 sets, daily range): BP systolic 100–130; BP diastolic 64–84; PULSE 58–76; RESP 18–20; TEMP 36.6–37.2; O2SAT 93–94
[2022-09-18] MEDS: ACETAMINOPHEN 325 MG TABLET 650 MG PO (00:09)
[2022-09-18] MEDS: OXYCODONE 5 MG TABLET PO (05:21)
--- NOTE | 2022-09-18 05:39 | PC.NURSE ---
9813-2500 Pt slept during night, using home cpap. Denies N/V this shift, c/o headache 10/30, prn pain medication administered. PO intake adequate during night, using urinal in bed, pt requested not to get up to use br because he wanted to get as much sleep as possible. IV site to R wrist occluded, removed and intact. unsuccessful IV start. Pt declined starting a new IV due to possible D/C this a.m. charge nurse updated.
[2022-09-18] MEDS: SERTRALINE 100 MG TABLET PO (08:56)
[2022-09-18] MEDS: polyethylene glycoL 3350 17 GM PACK PO (08:56)
[2022-09-18] MEDS: SENNOSIDES/DOCUSATE TABLET 1 TAB PO (08:56)
--- NOTE | 2022-09-18 17:38 | P.DS_ITS ---
DS: Providers Provider Date Seen: 09/18/22 Date of admission: 09/16/22 19:44 Primary care physician: Emory Masters MD Admitting Clinician: Narda Landa MD Attending Physician on discharge: Narda Landa MD Date of Discharge: 09/18/22 DS: Diagnosis Discharge Diagnosis (1) Vertigo: Status: Acute Problem details: Likely a sequelae of the concussion. Now resolved. Previous history of traumatic vertigo about a year ago. (2) Concussion: Status: Acute Problem details: Patient had severe concussion symptoms on admission. Intractable vomiting. Severe vertigo. Inability to stand and walk. All are much improved over the last 2 days. Outpatient PT evaluation. Expect continued but gradual improvement in symptoms. (3) Skull fracture: Status: Acute Problem details: Symptomatic treatment. No intervention required. (4) Fracture of hand: Status: Acute Problem details: Left 5th metacarpal. Nondisplaced. Follow up next week. Likely will heal with just splinting for protection DS: Summary Hospital Course Hospital Course: 67-year-old male admitted to the hospital after falling off a semi-truck and hitting his head. He had intractable vomiting. Brought to the emergency room where he was found to have a nondisplaced skull fracture with a trace amount of bleeding. No significant intracranial bleeding. Urgent repeat head CT showed if anything modest improvement. Neurosurgery recommended conservative management. Patient had severe concussion symptoms including severe vertigo, severe vomiting, inability to walk. Over the last day those symptoms have markedly improved. He is now able to walk without a walker and he has been able to eat without vomiting today. Left 5th metacarpal fracture is nondisplaced and managed with a splint. Status at Discharge Cognitive/behavioral status at discharge: Much improved Functional status at discharge: independent ambulation Overall status at discharge: patient is progressing back to baseline Time Spent with Patient Time attestation: Total time spent providing and/or coordinating discharge services: Time spent: Greater than 30 minutes Exam Narrative: Exam Narrative: He is alert and in no distress. Speech is normal. He is oriented to his circumstances. He has no nystagmus. He is observed to stand and walk much better than previously. Breathing is unlabored. Const: Vital Signs, click to edit/add: Vital Signs - 24 hr 09/17/22 19:00 09/17/22 23:00 09/17/22 23:00 Temperature 99.0 F Pulse Rate Pulse Rate [Pulse Oximeter] 67 Respiratory Rate 16 18 Blood Pressure Blood Pressure [Le ft Arm] Blood Pressure [Ri ght Arm] 148/93 H Pulse Oximetry 93 92 92 Oxygen Delivery Me thod Room Air CPAP 09/17/22 23:00 09/18/22 00:13 09/18/22 03:00 Temperature 98.9 F 98.9 F Pulse Rate 76 Pulse Rate [Pulse Oximeter] 57 L 60 Respiratory Rate 18 20 Blood Pressure Blood Pressure [Le ft Arm] 124/76 Blood Pressure [Ri ght Arm] Pulse Oximetry 92 94 Oxygen Delivery Me thod CPAP CPAP 09/18/22 07:25 09/18/22 07:57 09/18/22 07:30 Temperature Pulse Rate 58 L Pulse Rate [Pulse Oximeter] Respiratory Rate 18 Blood Pressure Blood Pressure [Le ft Arm] Blood Pressure [Ri ght Arm] Pulse Oximetry 93 Oxygen Delivery Me thod 09/18/22 08:04 09/18/22 07:30 09/18/22 11:52 Temperature 97.9 F 97.9 F Pulse Rate 58 L Pulse Rate [Pulse Oximeter] 58 L Respiratory Rate 18 18 Blood Pressure 130/84 Blood Pressure [Le ft Arm] Blood Pressure [Ri ght Arm] 100/64 Pulse Oximetry 93 93 Oxygen Delivery Me thod Room Air Room Air Documenting provider has reviewed patient's vital signs: yes Discharge Plan Discharge Disposition: Home, Self-Care Date of Admission: 09/16/22 19:44 Attending Provider on Discharge: Abdiaziz Cid Primary Care Provider: Emory Masters Condition: Improved Anticipated Discharge Date/Time: 09/18/22 10:00 Discharge Medications: New sennosides-docusate sodium [Stool Softener-Laxative] 8.6-50 mg Tablet 1 tab PO BID PRN (Reason: constipation) Qty: 30 0RF ondansetron 4 mg tablet,disintegrating 4 mg PO Q8H Qty: 15 0RF Continued sertraline 100 mg tablet 100 mg PO DAILY meloxicam 15 mg tablet 15 mg PO DAILY Discharge Orders: Discharge Order (Routine); Ordered 09/18/22 Ordered By: Abdiaziz Cid Patient Education: Ondansetron (By mouth), Senna (By mouth), Concussion (DC) Additional Instructions: Outpatient physical therapy to evaluate concussion. The clinic will call you with appointment date and time. Activity Level: Activity as Tolerated Activity Detail: keep splint on left hand until follow-up with your doctor Discharge Diet: Regular Follow Up Appointments: María Elena Brooks MD [Staff Physician] - 09/22/22 11:00 am (Call if you have any questions) Emory Masters MD [Primary Care Provider] - None Forms: [employer] Info Instructions
== END 2022-09-18 12:30 | disposition home or self-care (01) ==
LOC: ED 19:15 → MEDSURG 19:45
PROVIDERS: Admitting Provider Family Medicine; Emergency Provider Emergency Medicine Emergency Medical Services; PCP Family Medicine; Visit Provider Family Medicine
DX: S06.0X1A Concussion with loss of consciousness of 30 minutes or less, initial encounter (principal); S62.327A Displaced fracture of shaft of fifth metacarpal bone, left hand, initial encounter for closed fracture; S02.91XA Unspecified fracture of skull, initial encounter for closed fracture; S00.83XA Contusion of other part of head, initial encounter; R11.15 Cyclical vomiting syndrome unrelated to migraine; R42 Dizziness and giddiness; R26.89 Other abnormalities of gait and mobility; G47.33 Obstructive sleep apnea (adult) (pediatric); Z99.89 Dependence on other enabling machines and devices; E66.01 Morbid (severe) obesity due to excess calories; Z68.41 Body mass index [BMI] 40.0-44.9, adult; J67.0 Farmer's lung; F41.9 Anxiety disorder, unspecified; R11.0 Nausea; M19.032 Primary osteoarthritis, left wrist; M19.031 Primary osteoarthritis, right wrist; R51.9 Headache, unspecified; R07.89 Other chest pain; Z98.890 Other specified postprocedural states; V48.4XXA Person boarding or alighting a car injured in noncollision transport accident, initial encounter
CPT/HCPCS: 29130; 36415; 70450; 71250; 72125; 73130; 74176; 80048; 80076; 83036; 85025; 85610; 87635; 93005; 94761; 96361; 96366; 96374; 96375; 97116; 97161; 97165; 97530; 97535; 99285; 99291; G0378; A9270; G0390; J1170; J2060; J2405; J7120

== ENCOUNTER 2022-10-29 10:30 | Outpatient (RCR) | payer OTHER, SELFPAY ==
--- NOTE | 2022-09-23 15:22 | PT.OPEX ---
PT [place] Outpatient Eval PT [facility] Outpatient Eval Start: 09/23/22 09:29 Freq: Status: Active Protocol: Document 09/23/22 09:31 MARCO (Rec: 09/23/22 09:33 MARCO [id number]) E-signed By AZAM ManningT, MS Physical Therapy Outpatient Evaluation Insurance Information Insurance Name [employer] Medical Diagnosis Concussion Treating Diagnosis Sensory disorganization, B (R> L) CS hypertonicity and decreased flexibility, convergence insufficiency, dynamic visual acuity deficit, and VOR cancellation deficit Subjective Subjective Pt presents to PT with c/o eye strain, HAs, dizziness, and mental fatigue following concussion on 09/16/22 after falling off of a 8-9 foot tall platform striking the back of his head on a concrete floor. Lost consciousness for ~10 minutes with vomiting for almost 2 days straight afterwards. Pt was filling hydraulic fluid on a semi and has no memory of what happened if he tripped or passed out, waking up ~10 min after the fall. Spent 3 days in the hospital with CT scan showing hairline non-displaced cranial fracture with minimal cranial bleeding. 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 Busy environments have caused min-mild dizziness/ metal fatigue. Notes 9 previous eye surgeries for cataracts, droopy eyelids and detached retina, and has noticed eye strain/fatigue. Careful to avoid ice but wants to return to full work duties [employer], but plans on no longer performing activities on ladders. Notes a long hx of motion sensitivity . 1 previous concussion in 2020 after falling off a ladder 8-9 feet up striking the back of his head. Experienced room spinning dizziness with head positional changes for 4-5 months afterwards. AGGR factors: busy environments, reading, computer usage, quick directional changes, bright lights. ALLEV factors: rest, activity until fatigue. 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 Notable improvement in sxs and uma to daily activities since his hospitalization. Objectively pt displays sensory disorganization with overreliance on vision for balance, decreased B CS flexibility, convergence insufficiency, dynamic visual acuity deficit and VOR cancellation deficit. Overreliance on vision for balance with testing consistent with peripheral vestibular dysfunction. CS tightness combined with visual deficits leading to continued HAs. Significant time spent discussing pt?s work and daily routine, emphasizing importance of not pushing computer use and other daily activities beyond moderate level of sxs with the goal of desensitization. Also cautioned to be careful with ice and snow to avoid further head injuries. He will benefit greatly from continued skilled therapy to address these limitations. Primary Functional Limitations Busy environments, reading, computer usage, quick directional changes, bright lights Plan of Care Rehabilitation Potential Excellent Physical Therapy Goals Short term goals to be completed in 4 weeks 1. Pt will report >50% improvement in HAs for >3 consecutive days to increased ability to perform work duties . 2. Pt will report improved quality of sleep waking <2x per night due to neck pain and HAs for >3 consecutive days. FPC goals to be completed in 12 weeks 1. Pt will be independent and compliant with HEP for shelter sx management 2. Pt will display improved convergence <10 cm to improve tolerance to reading and work activities. 3. Pt will display resolution of VOR cancellation deficit to improve tolerance to busy environments 4. Pt will be able to full swimming and daily activities without elevation in sxs for > 3 consecutive days in a week. 5. Pt will report >75% improvement in DHI questionnaire to significantly improve tolerance to daily activities. Coordination/Communication With Referral Source Treatment Plan/Direct Interventions Canalith Repositioning,Joint Mobilization,Manual Therapy, Neuromuscular Re-ed, Therapeutic Exercises Frequency/Duration 1x per week for at least 8-12 visits, decreasing visit frequency as able. Patient Will Be Discharged From Therapy Completion of LTG(s),Skills Plateau,Independent w/HEP, Independently Progressing Evaluation Billing Untimed Code Treatment Minutes 30 Complexity Moderate Certification Information Initial Certification Date 09/23/22 Ending Certification Date 12/22/22 Provider Signature Shows Agreement With POC & Medical Necessity Physician Signature & Date Requested Please Sign/Date Here Physician Comment/Change : Physician NPI Number #
== END 2022-10-29 12:43 | disposition home or self-care (01) ==
PROVIDERS: PCP Family Medicine; Visit Provider Family Medicine
DX: S06.0XAD Concussion with loss of consciousness status unknown, subsequent encounter (principal); Z51.89 Encounter for other specified aftercare
CPT/HCPCS: 97110; 97162

== ENCOUNTER 2023-08-13 06:29 | Outpatient (CLI) | payer OTHER, SELFPAY ==
--- NOTE | 2023-08-13 07:50 | W.ANESCHARGE ---
Anesthesia Charges Start Date/Time Anesthesia Start Date: 08/13/23 Anesthesia Start Time: 07:20 Stop Date/Time Anesthesia Stop Date: 08/13/23 Anesthesia Stop Time: 07:43
--- NOTE | 2023-08-13 08:33 | W.ANESCHARGE ---
Anesthesia Charges Start Date/Time Anesthesia Start Date: 08/13/23 Anesthesia Start Time: 07:20 Stop Date/Time Anesthesia Stop Date: 08/13/23 Anesthesia Stop Time: 07:43
== END 2023-08-13 06:30 | disposition home or self-care (01) ==
LOC: OP CLINIC 06:29
PROVIDERS: PCP Family Medicine; Visit Provider Internal Medicine
DX: Z12.11 Encounter for screening for malignant neoplasm of colon (principal)
CPT/HCPCS: 00812; 45378; J2704

== ENCOUNTER 2024-03-28 09:12 | Outpatient (CLI) | payer MEDICARE, BC, SELFPAY | END 2024-03-28 09:13 | disposition home or self-care (01) | PROVIDERS: PCP Family Medicine; Visit Provider Family Medicine | DX: Z00.00 Encounter for general adult medical examination without abnormal findings (principal); E78.5 Hyperlipidemia, unspecified; E66.01 Morbid (severe) obesity due to excess calories; R35.0 Frequency of micturition | CPT/HCPCS: 80048; 80061; G0103 ==

== ENCOUNTER 2024-09-06 15:23 | Outpatient (CLI) | payer MEDICARE, BC, SELFPAY ==
--- NOTE | 2024-09-06 13:45 | MR_ITS ---
[facility] [address] [facility] [address] Phone:?[phone] Fax:?[phone] Referring Physician Information: Zhen Mccann M.D. [address] [facility] [address] Phone:?[phone] Fax:?[phone] Patient:Cassidy Palacios D.O.B:?[id number] Sex:?Male Phone:?[phone] [facility] MRN:?[id number] Exam Date:?09/06/2024 EXAM: MRI EXAMINATION OF THE RIGHT SHOULDER CLINICAL INFORMATION: Right shoulder pain. No specific injury. Possible rotator cuff tear. TECHNICAL INFORMATION: Coronal STIR. Axial, sagittal and coronal PD and T2- weighted images acquired. No prior studies for comparison. INTERPRETATION: Bones: No evidence for Hill-Sachs impaction deformity. There are subchondral cystic changes involving the glenoid. No occult fracture or AVN. Rotator Cuff: Series 9 images 5 and 6 as well as series 5 images 9 through 11 demonstrate a 1.5 cm AP by 1 cm mediolateral undersurface partial tear involving the mid to anterior supraspinatus tendon insertion. This maximally involves three fourths of the tendon fiber thickness. Mild adjacent infraspinatus tendinopathy. There is a slender intrasubstance partial tear involving the anterior tendon insertion. Series 5 image 15 as well as series 9 image 13 demonstrate 2.6 cm mediolateral ganglion cyst partially encircling the infraspinatus musculotendinous junction. The teres minor tendon is intact. There is a 1.3 cm craniocaudal segment of deep fiber partial-thickness tearing and fraying involving the superior subscapularis tendon. No appreciable rotator cuff muscle belly atrophy. Coracoacromial arch: There is no discrete subacromial osseous spur. The bony acromiohumeral interval is measuring 9 to 10 mm. There is no thickening identified of the coracoacromial ligament. Acromioclavicular joint: Mild to moderate AC joint DJD. No deformity of the underlying supraspinatus tendon. Minimal edema signal within the subacromial/subdeltoid bursa areas. Biceps tendon: There is medial subluxation of the long head biceps tendon from the superior bicipital groove. Moderate to marked tendinopathy traversing this level and continues intra-articular. Glenohumeral joint and labrum: No significant glenohumeral joint effusion. No discrete loose body within the joint. Chondromalacia with full-thickness and near full-thickness cartilage loss throughout the anterior one half of the glenoid. Full-thickness and near full- thickness cartilage loss along the superomedial aspect of the humeral head. Broad, diffuse appearance of tearing involves the glenoid labrum. No discrete paralabral cyst is identified. CONCLUSION: 1. There is a moderate-sized undersurface partial tear of the mid to anterior supraspinatus tendon insertion which maximally involves three fourths of the tendon fiber thickness. 2. Mild adjacent infraspinatus tendinopathy with a slender intrasubstance partial tear. There is a 2.6 cm ganglion cyst partially encircling the infraspinatus musculotendinous junction. 3. There is a moderate-sized segment of deep fiber partial-thickness tearing and fraying of the superior subscapularis tendon. 4. Biceps kailey lesion with medial subluxation of the long head biceps tendon from the superior bicipital groove. Associated moderate to marked tendinopathy. 5. Glenohumeral joint osteoarthritis. Full-thickness and near full-thickness cartilage loss along the superomedial humeral head as well as along the mid to anterior glenoid. Associated subchondral cystic change. 6. Diffuse tearing involves the glenoid labrum. 7. Mild to moderate AC joint without abnormal narrowing of the acromiohumeral interval. KES Electronically signed on 09/07/2024 10:21:00 AM by Zev Brunson M.D.
== END 2024-09-06 15:24 | disposition home or self-care (01) ==
LOC: MRI 15:25
PROVIDERS: PCP Family Medicine; Visit Provider Orthopaedic Surgery Sports Medicine
DX: M25.511 Pain in right shoulder (principal); S46.011A Strain of muscle(s) and tendon(s) of the rotator cuff of right shoulder, initial encounter; M19.011 Primary osteoarthritis, right shoulder; S43.431A Superior glenoid labrum lesion of right shoulder, initial encounter; M75.101 Unspecified rotator cuff tear or rupture of right shoulder, not specified as traumatic
CPT/HCPCS: 73221

== ENCOUNTER 2025-05-22 08:46 | Outpatient (CLI) | payer MEDICARE, BC, SELFPAY | END 2025-05-22 08:47 | disposition home or self-care (01) | PROVIDERS: PCP Family Medicine; Visit Provider Family Medicine | DX: Z13.9 Encounter for screening, unspecified (principal); E66.01 Morbid (severe) obesity due to excess calories; Z13.6 Encounter for screening for cardiovascular disorders; Z12.5 Encounter for screening for malignant neoplasm of prostate | CPT/HCPCS: 80048; 80061; 84460; 85025; G0103 ==